=== PATIENT | male | born 1970 | race Caucasian/White ===

== ENCOUNTER 2019-01-11 10:27 | Day surgery (SDC) | payer OTHER ==
[2019-01-10 11:32] VITALS: BMI 34.2
[2019-01-11] MEDS ORDERED: MIDAZOLAM HCL 2 MG/2 ML SINGLE DOSE VIAL ONE (13:38)
[2019-01-11] MEDS ORDERED: PROPOFOL 20 ML ONE (13:44)
[2019-01-11] MEDS ORDERED: ceFAZolin SODIUM 1 GM VIAL IVPB ONE (13:48)
[2019-01-11] MEDS ORDERED: ceFAZolin SODIUM 1 GM VIAL ONE (13:58)
[2019-01-11] MEDS ORDERED: DEXAMETHASONE SOD PHOSPHATE 4 MG/1 ML VIAL ONE (13:58)
[2019-01-11] MEDS ORDERED: LIDOCAINE HCL/PF 2% SDV 5ML VIAL ONE (13:58)
[2019-01-11] MEDS ORDERED: DESFLURANE GAS 240 ML BOTTLE IH ONE (13:59)
[2019-01-11] MEDS ORDERED: oxyCODONE HCL 5 MG TABLET PO PRN (14:07)
[2019-01-11] MEDS ORDERED: PROMETHAZINE HCL 25 MG/1 ML VIAL IVPB PRN (14:07)
[2019-01-11] MEDS ORDERED: ONDANSETRON 4 MG/2 ML VIAL IVPUSH PRN (14:07)
[2019-01-11] MEDS ORDERED: LACTATED RINGERS SOLUTION 1,000 ML IV SCH (14:15)
[2019-01-11] MEDS ORDERED: ePHEDrine SULFATE 50 MG/1 ML AMPULE ONE (14:26)
[2019-01-11] MEDS ORDERED: GENTAMICIN SO4 80 MG/2 ML VIAL IVPB ONE ×2 (15:02→15:20)
[2019-01-11 17:29] VITALS: TEMP 98
--- NOTE | 2019-01-11 17:58 | OP ---
DATE OF OPERATION: 01/11/2019 PREOPERATIVE DIAGNOSIS: Ureteral calculus. POSTOPERATIVE DIAGNOSIS: Ureteral calculus. PROCEDURE: Cystoscopy with left ureteroscopy and laser lithotripsy and placement of ureteral stent. ATTENDING SURGEON: Olivier Main M.D. ANESTHESIA: General by LMA DESCRIPTION OF PROCEDURE: Patient was brought into the operating room, timeout was performed, and IV Ancef was administered. He was carefully placed in lithotomy with SCDs on the lower extremities. A 23 [place] cystoscope was passed per urethra into the bladder. The bladder was examined and noted to be radically trabeculated. 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 The left orifice was identified and a sensor wire was placed through an open-ended catheter and advanced under fluoroscopy into the left renal pelvis. Fluoroscopy did confirm the presence of an approximately 2.5 to 3 cm stone in the region of the bony pelvis. The cystoscope was then removed and wire left in place. A dual lumen catheter was then placed over the wire, and a 2nd sensor wire passed. The lumen catheter was then removed. One wire left to the side as a safety wire, and a 36-cm access sheath was then carefully placed over the other wire and advanced under fluoroscopy to just distal to the stone. Following this, the ureteroscope was advanced through the access sheath. Flexible ureteroscope was used. The stone was identified. The ureteroscope was then passed proximal to the stone to make sure that no proximal obstruction. In fact the ureter above the stone was markedly dilated as was the renal pelvis, and the calices on that side. The ureteroscope was then withdrawn to the level of the stone, and using a 20 micron fiber and initially a power setting of 0.2 at a rate of 30, fragmentation of the stone was initiated. As fragmentation proceeded, the stone seemed to be harder in its core, and a 0.5 energy was used and fragmentation continued. As the process continued, most of the stones were put into just powder and as the fragmentation continued, some bleeding was present. It should also be noted there was marked amount of edema in the region of the stone probably secondary to the fact that it had been in place for quite some time. After visualization became difficult because of the edema and the bleeding, the fragmentation was halted, approximately 2/3 of the stone had been addressed at that point. The ureteroscope and sheath were carefully withdrawn. Previously placed safety wire was then passed retrograde through the cystoscope which was reinserted, and a 6 [place] 26-cm double pigtail catheter advanced over the wire and placed so that the proximal curl was present in the left renal pelvis and the distal curl was present in the bladder. The patient tolerated the procedure well. A Brown catheter was inserted at the completion of the procedure and irrigated of some clot that seemed to clear. There were no complications. Patient left the OR in satisfactory condition. MD LAYO WANG/[id number]
[2019-01-11 19:07] VITALS: BP 144/84; PULSE 61
--- NOTE | 2019-01-13 09:56 | PATH ---
Surgical Pathology Report Patient Name: [facility]. Rec. #: [id number] /Age/Gender: 1970 (Age: 48) / M Account: [id number] Location: [facility] SURGICAL Taken: 01/11/2019 Received: 01/12/2019 Reported: 01/13/2019 Physicians: Olivier Main MD Specimen(s) Received LEFT URETERAL STONE Clinical History Calculus of ureter Final Diagnosis URETERAL STONE, LEFT, LASER LITHOTRIPSY: URETEROLITHIASIS. MACROSCOPIC DIAGNOSIS. Electronically Signed Shanika Geiger M.D. Gross Description Received fresh labeled "left ureteral stone," is a 0.2 cm in greatest dimension truong-brown, irregular calculus which is sent for chemical analysis. /01/12/201901/12/2019
== END 2019-01-11 19:05 | disposition home or self-care (01) ==
LOC: JASU-SURG 10:27
PROVIDERS: ATTEND Urology
PROC: 0TF78ZZ Fragmentation in Left Ureter, Via Natural or Artificial Opening Endoscopic (ICD-10-PCS; principal; 2019-01-11 12:00)
PROC: 0T778DZ Dilation of Left Ureter with Intraluminal Device, Via Natural or Artificial Opening Endoscopic (ICD-10-PCS; 2019-01-11 12:00)
DX: N20.1 Calculus of ureter (principal); I10 Essential (primary) hypertension; J44.9 Chronic obstructive pulmonary disease, unspecified; G47.30 Sleep apnea, unspecified; E66.9 Obesity, unspecified; N40.0 Benign prostatic hyperplasia without lower urinary tract symptoms
CPT/HCPCS: 36415; 74018-TC-FY; 82360; 82962; 87086; 88300-TC; 94760